=== PATIENT | male | born 1975 | race Caucasian/White ===

== ENCOUNTER 2019-12-01 18:55 | Emergency (ER) | payer OTHER ==
[~2019-12-01] VITALS: Ht 167.6 cm; Wt 109.1 kg
[2019-12-01 19:40] LABS: APPEARANCE,URINE CLEAR (CLEAR); BILIRUBIN,URINE NEGATIVE (NEGATIVE); GLUCOSE, URINE (UA) NEGATIVE (NEGATIVE); KETONES,URINE NEGATIVE (NEGATIVE); LEUKOCYTE ESTERASE ,URINE NEGATIVE (NEGATIVE); NITRATE,URINE NEGATIVE (NEGATIVE); OCCULT BLOOD,URINE NEGATIVE (NEGATIVE); PROTEIN,URINE NEGATIVE (NEGATIVE)
[2019-12-01] MEDS ORDERED: KETOROLAC TROMETHAMINE 30 MG/ML VIAL IM ONE (20:30)
[2019-12-01 21:35] VITALS: BP 130/76
== END 2019-12-01 21:56 | disposition home or self-care (01) ==
LOC: EMS 19:04
DX: S39.012A Strain of muscle, fascia and tendon of lower back, initial encounter (principal); X58.XXXA Exposure to other specified factors, initial encounter; Y93.89 Activity, other specified; Y92.89 Other specified places as the place of occurrence of the external cause; Y99.8 Other external cause status
CPT/HCPCS: 74176; 81003; 96372; 99284; J1885

== ENCOUNTER 2021-05-17 12:14 | Emergency (ER) | payer OTHER ==
[~2021-05-17] VITALS: Ht 170.2 cm; Wt 113.6 kg
[2021-05-17 13:45] VITALS: BP 118/65
== END 2021-05-17 14:04 | disposition home or self-care (01) ==
LOC: EMS 12:15
DX: L98.9 Disorder of the skin and subcutaneous tissue, unspecified (principal)
CPT/HCPCS: 99281; Z7502